=== PATIENT | male | born 1940 | race Caucasian/White ===

== ENCOUNTER 2018-12-26 07:25 | Outpatient (CLI) | payer MEDICARE, OTHER ==
--- NOTE | 2018-12-26 12:31 | Ultrasound Report ---
Reason: SYNCOPE AND COLLAPSE Procedure Date: 12/26/2018 Accession Number: [id number] / [id number] Procedure: US - Carotid Doppler Complete CPT Code: FULL RESULT: EXAM: BILATERAL CAROTID AND VERTEBRAL ARTERY DUPLEX DOPPLER ULTRASOUND: EXAM DATE: 12/26/2018 08:36 AM CLINICAL HISTORY: Syncope and collapse. COMPARISON: None. TECHNIQUE: Grayscale imaging, color Doppler, and duplex spectral Doppler were used to evaluate the carotid and vertebral arteries bilaterally. Static images were obtained. FINDINGS: Mild bilateral intimal thickening is identified with scattered plaque in both carotid systems predominantly near the bifurcation which is not felt to be hemodynamically significant. No significant plaque is identified in the right or left common or internal carotid arteries. Normal antegrade flow is present in bilateral vertebral arteries. VELOCITIES (cm/sec): Right CCA mid: PSV 78.9 cm/sec CCA dist: PSV 61.9 cm/sec ICA prox: PSV 56.7 cm/sec, EDV 15.5 cm/sec ICA mid: PSV 76.6 cm/sec, EDV 27.6 cm/sec ICA dist: PSV 85.7 cm/sec, EDV 29.4 cm/sec ECA: PSV 99.4 cm/sec Vert: PSV 45.0 cm/sec ICA/CCA: 1.08 Left CCA mid: PSV 77.5 cm/sec CCA dist: PSV 73.4 cm/sec ICA prox: PSV 72.9 cm/sec, EDV 21.9 cm/sec ICA mid: PSV 95.9 cm/sec, EDV 38.4 cm/sec ICA dist: PSV 65.6 cm/sec, EDV 23.6 cm/sec ECA: PSV 81.1 cm/sec Vert: PSV 47.8 cm/sec ICA/CCA: 1.23 ICA diameter stenosis: Right: <50% by velocity and <70% by NASCET criteria. Left: <50% by velocity and <70% by NASCET criteria. IMPRESSION: 1. No significant bilateral carotid artery plaquing. 2. In the right carotid artery there are no elevated carotid artery velocities to suggest hemodynamically significant stenosis. 3. In the left carotid artery there are no elevated carotid artery velocities to suggest hemodynamically significant stenosis. 4. Normal antegrade flow is present in bilateral vertebral arteries. General Recommendations: Stenosis =50% ICA - Follow-up ultrasound 6-12 months Stenosis <50% ICA - High Risk Patient with plaque - Follow-up ultrasound 1-2 years Normal Study but High Risk Patient - Follow-up ultrasound 3-5 years Management recommendations and diagnostic criteria are based on current IAC endorsed standards in Carotid Artery Stenosis: Grayscale and Doppler Ultrasound Diagnosis. Validated velocity measurements with angiographic measurements and velocity criteria are extrapolated from diameter data as defined by the Society of Radiologists in Ultrasound Consensus Conference Radiology 2003; 229;340-346. RADIA
== END 2018-12-26 07:26 | disposition home or self-care (01) ==
LOC: DI 07:25
PROVIDERS: ATTEND Physician Assistant
DX: R55 Syncope and collapse (principal)
CPT/HCPCS: 93306; 93880

== ENCOUNTER 2019-08-17 19:54 | Outpatient (CLI) | payer MEDICARE, OTHER | END 2019-08-17 19:55 | disposition short-term general hospital (02) | LOC: EMS 19:54 | PROVIDERS: ATTEND Surgery | DX: M79.621 Pain in right upper arm (principal); W01.0XXA Fall on same level from slipping, tripping and stumbling without subsequent striking against object, initial encounter; Y92.008 Other place in unspecified non-institutional (private) residence as the place of occurrence of the external cause | CPT/HCPCS: A0425; A0427 ==

== ENCOUNTER 2020-06-09 09:56 | Outpatient (CLI) | payer MEDICARE, OTHER ==
--- NOTE | 2020-06-09 14:38 | DEXA Report ---
PROCEDURE: Dexa Spine and/or Hip INDICATIONS: DISORDER FO BONE TECHNIQUE: Dual energy x-ray absorptiometry (DXA) was performed on a [email or web address] System. Regions measur ed are the AP Spine, femoral neck, and if needed forearm. COMPARISON: None. FINDINGS: Lumbar Spine: Bone Mineral Density 1.178 g/cm/cm,T score -0.3, normal statistically, but in the setting of quite severe degenerative disc disease and facet osteoarthritis related to prominent convex rightward scol iosis centered at L2 this likely overestimates the true bone mineral density. Left Hip: Bone Mineral Density 0.792 g/cm/cm,T score -2.1, osteopenia Left Femoral Neck: Bone Mineral Density 0.832 g/cm/cm, T score -1.8, osteopenia Left forearm, radius, total: Bone Mineral Density 0.567 g/cm/cm, T score -2.7, osteoporosis (T score greater or equal to -1.0: NORMAL) (T score from -1.1 to -2.4: OSTEOPENIA) (T score less than or equal to -2.5 to: OSTEOPOROSIS) Impression: Degenerative changes at the lumbosacral spine appear to overestimate the degree of bone d ensity, and therefore bone mineral density assessment of the left hip/femoral neck and left forearm r adius are considered more accurate. Each of these areas show osteopenia or osteoporosis (osteoporosis appears present at the left forearm). Patients with diagnosis of osteoporosis or osteopenia should have regular bone mineral density assess ment. For those eligible for Medicare, routine testing is allowed once every 2 years. Testing frequ ency can be increased for patients who have rapidly progressing disease or for those who are receivin g medical therapy to restore bone mass. Reviewed by: Maurice Vanessa MD on 06/09/2020 2:23 PM PDT Approved by: Maurice Vanessa MD on 06/09/2020 2:23 PM PDT Station ID: [id number]
== END 2020-06-09 09:57 | disposition home or self-care (01) ==
LOC: DI 09:56
PROVIDERS: ATTEND Registered Nurse
DX: M81.0 Age-related osteoporosis without current pathological fracture (principal)
CPT/HCPCS: 77080; 77081

== ENCOUNTER 2021-11-06 01:11 | Outpatient (CLI) | payer MEDICARE, OTHER | END 2021-11-06 01:12 | disposition EMS.NT | LOC: EMS 01:11 | DX: F41.0 Panic disorder [episodic paroxysmal anxiety] (principal) ==

== ENCOUNTER 2021-11-12 14:34 | Outpatient (CLI) | payer MEDICARE, OTHER ==
[2021-11-12 20:06] LABS: BASOPHILS % (AUTO) 0.5 %; EOSINOPHILS # (AUTO) 0.2 10^3/uL (0.0-0.7); EOSINOPHILS % (AUTO) 1.9 %; HCT - HEMATOCRIT 36.9 % (42.0-52.0); HGB - HEMOGLOBIN 12.1 g/dL (14.0-18.0); LYMPHOCYTES # (AUTO) 1.6 10^3/uL (1.5-3.5); LYMPHOCYTES % (AUTO) 19.9 %; MEAN CORPUSCULAR HEMOGLOBIN 30.9 pg (27.0-31.0); MEAN CORPUSCULAR HGB CONC 32.8 g/dL (32.0-36.0); MEAN CORPUSCULAR VOLUME 94.4 fL (80.0-94.0); MONOCYTES # (AUTO) 0.7 10^3/uL (0.0-1.0); MONOCYTES % (AUTO) 8.8 %; NEUTROPHILS # (AUTO) 5.4 10^3/uL (1.5-6.6); NEUTROPHILS % (AUTO) 68.5 %; PLT - PLATELET COUNT 197 10^3/uL (130-450); RED BLOOD COUNT 3.91 10^6/uL (4.70-6.10); RED CELL DISTRIBUTION WIDTH 14.3 % (12.0-15.0); WHITE BLOOD COUNT 7.9 x10^3/uL (4.8-10.8)
[2021-11-12 20:21] LABS: ALBUMIN 4.3 g/dL (3.2-5.5); ALBUMIN/GLOBULIN RATIO 1.5 (1.0-2.2); BILIRUBIN,TOTAL 1.7 mg/dL (0.2-1.0); CALCIUM 9.1 mg/dL (8.5-10.3); CREATININE 0.9 mg/dL (0.6-1.2); POTASSIUM 4.4 mmol/L (3.5-5.0); TOTAL PROTEIN 7.2 g/dL (6.7-8.2)
== END 2021-11-12 14:35 | disposition home or self-care (01) ==
LOC: LAB.S 14:34
PROVIDERS: ATTEND Nurse Practitioner Family
DX: D64.9 Anemia, unspecified (principal); R22.42 Localized swelling, mass and lump, left lower limb
CPT/HCPCS: 36415; 80053; 85025; 85379

== ENCOUNTER 2021-11-13 11:24 | Outpatient (CLI) | payer MEDICARE, OTHER ==
--- NOTE | 2021-11-13 12:34 | Ultrasound Report ---
PROCEDURE: Duplex Ext Veins Left INDICATIONS: D-DIMER ABOVE REFERENCE RANGE TECHNIQUE: Real-time imaging, as well as color and pulse Doppler interrogation, were performed of the lower extr emity deep veins from the inguinal ligament to the popliteal fossa. COMPARISON: None. FINDINGS: There is acute inflammatory occlusive thrombus in the entire left lower extreme deep venous system from the level of the common femoral vein to the popliteal. IMPRESSION: Acute and fully occlusive thrombus in the left common femoral vein, superficial femoral vein, deep femoral vein, and popliteal vein. Reviewed by: Leo Stratton MD on 11/13/2021 11:32 AM [facility] Approved by: Leo Stratton MD on 11/13/2021 11:32 AM [facility] Station ID: [id number]
== END 2021-11-13 11:25 | disposition home or self-care (01) ==
LOC: DI 11:24
PROVIDERS: ATTEND Nurse Practitioner Family
DX: I82.412 Acute embolism and thrombosis of left femoral vein (principal); I82.432 Acute embolism and thrombosis of left popliteal vein; I82.812 Embolism and thrombosis of superficial veins of left lower extremity

== ENCOUNTER 2021-11-24 07:45 | Outpatient (CLI) | payer MEDICARE, OTHER ==
[2021-11-24 08:20] LABS: CALCIUM 9.6 mg/dL (8.5-10.3); POTASSIUM 3.9 mmol/L (3.5-5.0)
[2021-11-24] MEDS ORDERED: GADOBUTROL 10 MMOL/10 ML VIAL ONE (08:20)
--- NOTE | 2021-11-24 11:39 | MRI Report ---
PROCEDURE: Brain W/WO INDICATIONS: SYNCOPE OR COLLAPSE CONTRAST: IV CONTRAST: Gadavist ml: 8.8 TECHNIQUE: Noncontrast axial T1 spin echo, axial T2 fast spin echo, sagittal and axial FLAIR, coronal T2 fast sp in echo, axial gradient echo, axial diffusion and ADC through the brain. After the administration of contrast, axial and coronal T1 spin echo with fat saturation through the brain. COMPARISON: Correlation is made with the accompanying head and neck MR angiogram studies, 11/24/2021. FINDINGS: Image quality: Excellent. CSF spaces: Basal cisterns are patent. No extra-axial fluid collections. Ventricles are normal in size and shape. Brain: No midline shift. No intracranial bleeds or masses. No abnormal intracranial enhancement. There is cerebral volume loss for age. There is periventricular white matter chronic small vessel is chemic change. The brainstem appears normal. Diffusion-weighted images demonstrate no acute ischemi c insults. No chronic ischemic insults. Normal intravascular flow voids are present. Skull and face: Calvarial marrow is normal in signal. Orbits appear normal. A right lens replaceme nt can be seen. Sinuses: Sinuses and mastoids appear clear. IMPRESSION: No findings of acute or subacute infarction are seen. No masses or abnormal enhancement can be seen. Age-appropriate brain parenchymal volume loss and chronic small vessel ischemic change can be seen. Reviewed by: Avery Zavala MD on 11/24/2021 10:38 AM [facility] Approved by: Avery Zavala MD on 11/24/2021 10:38 AM [facility] Station ID: [id number]
--- NOTE | 2021-11-24 11:41 | MRI Report ---
PROCEDURE: Angio Neck W/WO (MRA) INDICATIONS: SYNCOPE AND COLLAPSE CONTRAST: IV CONTRAST: Gadavist ml: 8.8 TECHNIQUE: Axial and sagittal balanced GE through the neck. Coronal dynamic MRA after the administration of con trast in the arterial and venous phases, with rotating 3-dimensional maximum intensity projection (MN P) reformats constructed from subtraction images. COMPARISON: Carotid Doppler ultrasound 12/26/2018. FINDINGS: Image quality: Degraded by patient motion artifact. Carotid system: Great vessels demonstrate a conventional anatomy as they arise from the aortic arch. The origins of the common carotid arteries appear normal. The calibers and courses of the common c arotid arteries are likewise normal. Mild atherosclerotic irregularity noted in the origins of the in ternal carotid arteries bilaterally which causes less than 50% stenosis of the vessels. The internal carotid arteries are widely patent up to the [place]. Posterior circulation: Mild atherosclerotic stenosis involving the origin of the right vertebral art demario. The origin of the left vertebral artery is fully patent. The more superior portions of the verte bral arteries demonstrate normal course and caliber. Vertebral arteries join to form a normal appear ing basilar artery. Miscellaneous: Subclavian arteries are patent throughout. Pre-contrast images through the neck demo nstrate no soft tissue abnormalities. IMPRESSION: 1. Less than 50% stenosis of the origins of the right and left internal carotid arteries. 2. Mild stenosis of the origin of the right vertebral artery. 3. Left vertebral artery is fully patent. Reviewed by: Alma Rojas MD, PhD on 11/24/2021 11:40 AM PST Approved by: Alma Rojas MD, PhD on 11/24/2021 11:40 AM PST Station ID: [id number]
--- NOTE | 2021-11-24 12:04 | MRI Report ---
PROCEDURE: Angio Brain W/O (MRA) INDICATIONS: SYNCOPE AND COLLAPSE TECHNIQUE: Noncontrast axial 3-D [id number] MR angiogram, with 3-dimensional maximum intensity projection (M IP) reformats of the internal carotid arteries and posterior circulation then performed. COMPARISON: None. FINDINGS: Image quality: Excellent. Anterior circulation: Intracranial internal carotid arteries demonstrate normal size and intralumina l flow signal. The flow within the paired anterior cerebral arteries is normal and symmetric. The f low within the middle cerebral arteries is normal and symmetric. The anterior communicating artery i s seen. No stenoses, occlusions, or aneurysms. Posterior circulation: Visualized portions of the vertebral arteries demonstrate normal caliber, and join to form a normal appearing basilar artery. The flow within the posterior cerebral arteries is normal and symmetric. No stenoses, occlusions, or aneurysms. IMPRESSION: No large vessel occlusion, vascular stenosis, vascular dissection or aneurysm. Reviewed by: Alma Rojas MD, PhD on 11/24/2021 12:03 PM PST Approved by: Alma Rojas MD, PhD on 11/24/2021 12:03 PM PST Station ID: [id number]
[2021-11-24] MEDS: GADOBUTROL 10 MMOL/10 ML VIAL IVP ONE (12:22)
== END 2021-11-24 07:46 | disposition home or self-care (01) ==
LOC: DI 07:45
PROVIDERS: ATTEND Nurse Practitioner Family
DX: R55 Syncope and collapse (principal); I65.01 Occlusion and stenosis of right vertebral artery
CPT/HCPCS: 36415; 70544; 70549; 70553; 80048; A9585

== ENCOUNTER 2023-01-25 09:55 | Outpatient (CLI) | payer MEDICARE, OTHER ==
--- NOTE | 2023-01-25 11:04 | DEXA Report ---
PROCEDURE: Dexa Spine and/or Hip INDICATIONS: OSTEOPOROSIS TECHNIQUE: Dual energy x-ray absorptiometry (DXA) was performed on a [employer] System. Regions measur ed are the AP Spine, femoral neck, and if needed forearm. COMPARISON: 06/09/2020 FINDINGS: Lumbar Spine: Bone Mineral Density 1.15 g/cm/cm,T score -0.5, previously -0.3 As noted previously, due to sclerotic degenerative disc disease, bone mineral density is probably ove restimated. 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 Osteopenia of the left hip. Bone mineral densities are decreased compared to prior. Fracture risk is significantly increased. Lumbar spine findings as above. Patients with diagnosis of osteoporosis or osteopenia should have regular bone mineral density assess ment. For those eligible for Medicare, routine testing is allowed once every 2 years. Testing frequ ency can be increased for patients who have rapidly progressing disease or for those who are receivin g medical therapy to restore bone mass. Reviewed by: Phillip Rucker MD on 01/25/2023 11:03 AM PDT Approved by: Phillip Rucker MD on 01/25/2023 11:03 AM PDT Station ID: [id number]
== END 2023-01-25 09:56 | disposition home or self-care (01) ==
LOC: DI 09:55
PROVIDERS: ATTEND Registered Nurse
DX: M81.0 Age-related osteoporosis without current pathological fracture (principal)

== ENCOUNTER 2023-11-11 06:28 | Day surgery (SDC) | payer MEDICARE, OTHER ==
[2023-11-11] MEDS ORDERED: LACTATED RINGERS 1,000 ML IV ONE ×2 (06:50→08:08)
--- NOTE | 2023-11-11 06:56 | ANESTHESIA ---
Pre-Anesthesia VS, & Labs - Diagnosis hx of polyps - Procedure colonoscopy Vital Signs: Temp Pulse Resp BP Pulse Ox O2 Flow Rate 36.1 C L 76 13 175/93 H 98 11/11/23 06:44 11/11/23 06:44 11/11/23 06:44 11/11/23 06:44 11/11/23 06:44 Height: 5 ft 9 in Weight (kg): 96 kg Body Mass Index: 31.2 BMI Classification: Obese - NPO >8 hours Last Fluid Intake: am prep - Lab Results Lab results reviewed: Yes Home Medications and Allergies Home Medications: Ambulatory Orders Rivaroxaban [Xarelto] 20 mg PO DAILY 11/10/23 Alendronate [Fosamax] 70 mg PO Q7D 11/11/23 Aspirin EC [Ecotrin] 81 mg PO DAILY 05/19/13 Glipizide [Glucotrol] 10 mg PO DAILY 05/19/13 Lovastatin 10 mg PO DAILY 05/19/13 Niacin 500 mg PO BID 05/19/13 Losartan Potassium 25 mg PO DAILY 12/04/15 Probenecid 1,000 mg PO DAILY 12/04/15 Rivaroxaban [Xarelto] 20 mg PO DAILY 11/10/23 Allergies/Adverse Reactions: Allergies Allergy/AdvReac Type Severity Reaction Status Date / Time No Known Drug Allergies Allergy Verified 12/04/15 08:09 Anes History & Medical History - Medical History Cardiovascular: reports: Hypertension, Deep vein thrombosis (xerelto rx), Arrhythmia, Other Pulmonary: reports: None Gastrointestinal: reports: Ulcers, Colon polyps Urinary: reports: None Musculoskeletal: reports: Osteoarthritis, Scoliosis Endocrine/Autoimmune: reports: Type 2 diabetes, Other Skin: reports: None Smoking Status: Never smoker History of Cancer?: No - Surgical History General: reports: Cholecystectomy, Colonoscopy Eyes Ears Nose Throat (EENT): reports: Tonsil/Adenoidectomy Exam General: Alert, Oriented x3, Cooperative Dental: WNL Mouth Openin Fingerbreadth (large hussein) Neck Mobility: Normal Mallampati classification: II Thyromental Distance: 4-6 cm Respiratory: Lungs clear, Normal breath sounds, No respiratory distress Cardiovascular: Regular rate Neurological: Normal speech Mental/Cognitive Status: Alert/Oriented X3, Normal for patient Cognitive Status: Within normal limits Plan Anesthesia Type: Total IV Consent for Procedure(s) Verified and Reviewed: Yes Code Status: Attempt Resuscitation ASA classification: 3-Severe systemic disease Is this case an emergency?: No
[2023-11-11] MEDS ORDERED: PROPOFOL 500 MG/50 ML 500 MG/50 ML VIAL ONE (06:59)
[2023-11-11] MEDS ORDERED: MIDAZOLAM 2 MG/2 ML VIAL ONE (07:02)
[2023-11-11 08:31] VITALS: O2SAT 100
[2023-11-11 08:51] VITALS: BP 126/71
--- NOTE | 2023-11-11 09:46 | ANESTHESIA POST OP EVALUATION ---
Anesthesia Post Eval - Post Anesthesia Eval Vitals: Last Vital Signs Temp 36.0 C L 11/11/23 08:48 Pulse 60 11/11/23 08:48 Resp 16 11/11/23 08:48 BP 126/71 11/11/23 08:48 Pulse Ox 100 11/11/23 08:48 O2 Flow Rate CV Function Including HR & BP: Stable Pain Control: Satisfactory Nausea & Vomiting: Negative Mental Status: Baseline Respiratory Status: Airway Patent Hydration Status: Satisfactory Anesthesia Complications: None
== END 2023-11-11 06:29 | disposition home or self-care (01) ==
LOC: SDS 06:28
PROVIDERS: ATTEND Surgery
PROC: 0DBM8ZZ Excision of Descending Colon, Via Natural or Artificial Opening Endoscopic (ICD-10-PCS; 2023-11-11)
PROC: 0DBH8ZZ Excision of Cecum, Via Natural or Artificial Opening Endoscopic (ICD-10-PCS; 2023-11-11)
PROC: 0DBK8ZZ Excision of Ascending Colon, Via Natural or Artificial Opening Endoscopic (ICD-10-PCS; principal; 2023-11-11 07:30)
DX: Z12.11 Encounter for screening for malignant neoplasm of colon (principal); D12.2 Benign neoplasm of ascending colon; D12.0 Benign neoplasm of cecum; D12.4 Benign neoplasm of descending colon; K57.30 Diverticulosis of large intestine without perforation or abscess without bleeding; E11.9 Type 2 diabetes mellitus without complications; Z79.84 Long term (current) use of oral hypoglycemic drugs; E66.9 Obesity, unspecified; Z68.31 Body mass index [BMI] 31.0-31.9, adult; Z86.718 Personal history of other venous thrombosis and embolism; Z79.01 Long term (current) use of anticoagulants; I10 Essential (primary) hypertension
CPT/HCPCS: 45380; 45385; J7120

== ENCOUNTER 2024-04-10 10:01 | Outpatient (CLI) | payer MEDICARE, OTHER ==
--- NOTE | 2024-04-10 11:48 | DEXA Report ---
PROCEDURE: Dexa Spine and/or Hip INDICATIONS: OSTEOPOROSIS TECHNIQUE: Dual energy x-ray absorptiometry (DXA) was performed on a [employer] System. Regions measur ed are the AP Spine, femoral neck, and if needed forearm. COMPARISON: 01/25/2023 FINDINGS: Lumbar Spine: Bone Mineral Density: 1.18 g/cm/cm,T score: -0.4. Previously -0.5 Left Femoral Neck: Bone Mineral Density: 0.78 g/cm/cm, T score: -2.2, previously -2.7. Left Hip: Bone Mineral Density: 0.79 g/cm/cm,T score: -2.2. Previously -2.3 Left Forearm: Bone Mineral Density: 0.79 g/cm/cm, T score: -2. Previously -3.1 (T score greater or equal to -1.0: NORMAL) (T score from -1.1 to -2.4: OSTEOPENIA) (T score less than or equal to -2.5 to: OSTEOPOROSIS) Impression: By WHO criteria, this patient has low bone density (osteopenia). Bone mineral density in the left forearm and left femoral neck have improved compared to prior study. Fracture risk remains increased due to osteopenia. Patients with diagnosis of osteoporosis or osteopenia should have regular bone mineral density assess ment. For those eligible for Medicare, routine testing is allowed once every 2 years. Testing frequ ency can be increased for patients who have rapidly progressing disease or for those who are receivin g medical therapy to restore bone mass. Reviewed by: Phillip Rucker MD on 04/10/2024 11:47 AM PDT Approved by: Phillip Rucker MD on 04/10/2024 11:47 AM PDT Station ID: [id number]
== END 2024-04-10 10:02 | disposition home or self-care (01) ==
LOC: DI 10:01
PROVIDERS: ATTEND Registered Nurse
DX: M85.89 Other specified disorders of bone density and structure, multiple sites (principal)

== ENCOUNTER 2024-04-25 08:00 | Outpatient (CLI) | payer MEDICARE, OTHER | END 2024-04-25 23:59 | disposition home or self-care (01) | LOC: LAB.N 08:00 | PROVIDERS: ATTEND Registered Nurse | DX: L03.019 Cellulitis of unspecified finger (principal) | CPT/HCPCS: 87070; 87077; 87205 ==